=== PATIENT | male | born 1985 | race American Indian/Alaskan Native ===

== ENCOUNTER 2021-10-06 14:10 | Emergency (ER) | payer BC ==
[2021-10-06 15:10] VITALS: BP 138/86
[2021-10-06] MEDS ORDERED: KETOROLAC 60 MG/2 ML INJ IM ONE (16:31)
[2021-10-06] MEDS ORDERED: dexAMETHasone 4 MG/ML VIAL IM STA (16:31)
--- NOTE | 2021-10-06 16:37 | Emergency Department Report ---
ED General Adult HPI - General Chief complaint: Back Pain/Injury Stated complaint: BACK PAIN Time Seen by Provider: 10/06/21 15:28 Source: patient Mode of arrival: Ambulatory Limitations: Physical Limitation - History of Present Illness Initial comments: 36-year-old -[place] male patient presents with complaints of lower back pain radiating down his right leg since 10/03/2021. Patient states the pain began when he was bending over to lift a heavy item. He states he felt a sudden pop and pain in his low back. Patient states he has been trying OTC medications and heat to alleviate his symptoms without any improvement. He denies any past medical history, steroid use, numbness/tingling/weakness in his limbs, difficulty with ambulation, loss of bladder/bowel control, or history of cancer. Patient rates his current pain as a 10/10 in severity. NKDA per patient Severity scale (0 -10): 8 - Related Data Previous Rx's Medication Instructions Recorded Last Taken Type Naproxen 500 mg PO BID PRN #20 tab 10/06/21 Unknown Rx methocarbamoL [Methocarbamol] 750 - 1,500 mg PO TID PRN #30 tab 10/06/21 Unknown Rx predniSONE [Deltasone] 20 mg PO BID 2 Days #4 tab 10/06/21 Unknown Rx Allergies Allergy/AdvReac Type Severity Reaction Status Date / Time No Known Allergies Allergy Verified 10/06/21 16:38 ED Review of Systems ROS: Stated complaint: BACK PAIN Other details as noted in HPI Constitutional: denies: chills, fever, malaise Respiratory: denies: cough, shortness of breath Cardiovascular: denies: chest pain Gastrointestinal: denies: abdominal pain, hematochezia Genitourinary: denies: urgency, dysuria, hematuria Musculoskeletal: back pain Skin: denies: change in color Neurological: denies: weakness, numbness Hematological/Lymphatic: denies: easy bleeding, easy bruising ED Past Medical Hx - Past Medical History Previous Medical History?: No - Surgical History Past Surgical History?: No - Medications Home Medications: Home Medications Medication Instructions Recorded Confirmed Last Taken Type Naproxen 500 mg PO BID PRN #20 tab 10/06/21 Unknown Rx methocarbamoL [Methocarbamol] 750 - 1,500 mg PO TID PRN #30 tab 10/06/21 Unknown Rx predniSONE [Deltasone] 20 mg PO BID 2 Days #4 tab 10/06/21 Unknown Rx ED Physical Exam - General Limitations: Physical Limitation General appearance: alert, in no apparent distress, obese - Head Head exam: Present: atraumatic, normocephalic - Eye Eye exam: Present: normal appearance - Respiratory Respiratory exam: Absent: respiratory distress - Cardiovascular Cardiovascular Exam: Present: regular rate - Back Exam Back exam: Present: full ROM, paraspinal tenderness (Right lower lumbar). Absent: vertebral tenderness - Expanded Back Exam Expanded Back exam: Absent: saddle anesthesia Back exam: Sciatic Notch Tenderness: Right, Positive Straight Leg Raise: Right - Neurological Exam Neurological exam: Present: alert, oriented X3, normal gait - Psychiatric Psychiatric exam: Present: normal affect, normal mood - Skin Skin exam: Present: warm, dry, intact, normal color. Absent: rash ED Course Vital Signs 10/06/21 15:09 Temperature 98.4 F Pulse Rate 82 Respiratory 18 Rate Blood Pressure 138/86 [Right] O2 Sat by Pulse 99 Oximetry ED Medical Decision Making - Radiology Data Radiology results: report reviewed - Medical Decision Making 36-year-old -[place] male patient presents with complaints of lower back pain radiating down his right leg since 10/03/2021. Patient states the pain began when he was bending over to lift a heavy item. He states he felt a sudden pop and pain in his low back. Patient states he has been trying OTC medications and heat to alleviate his symptoms without any improvement. He denies any past medical history, steroid use, numbness/tingling/weakness in his limbs, difficulty with ambulation, loss of bladder/bowel control, or history of cancer. Patient rates his current pain as a 10/10 in severity. NKDA per patient Patient has full range of motion of the spine without vertebral tenderness or obvious deformities. Pain significantly improved with with medications given here in the ED. He denies any red flag symptoms. He is well-appearing and his vitals are within normal limits. Patient is stable for discharge home. Symptoms and physical appear to be consistent with low back strain and sciatica. Recommend follow-up with primary care doctor in 3 days. Discussed presumptive diagnosis, care plan, and signs and symptoms that should prompt immediate return to the ED with patient who verbalizes understanding Critical care attestation.: If time is entered above; I have spent that time in minutes in the direct care of this critically ill patient, excluding procedure time. ED Disposition Clinical Impression: Low back pain with right-sided sciatica Disposition: 01 HOME / SELF CARE / HOMELESS Is pt being admited?: No Condition: Stable Instructions: Sciatica, [id number], Lumbar Sprain Prescriptions: predniSONE [Deltasone] 20 mg PO BID 2 Days #4 tab methocarbamoL [Methocarbamol] 750 - 1,500 mg PO TID PRN #30 tab PRN Reason: muscle spasm/tightness Naproxen 500 mg PO BID PRN #20 tab PRN Reason: pain Referrals: [facility] [Provider Group] - 3-5 Days Forms: Work/School Release Form(ED)
== END 2021-10-06 18:09 | disposition home or self-care (01) ==
LOC: ED 14:10
DX: M54.31 Sciatica, right side (principal)
CPT/HCPCS: 96372; 99282; J1100; J1885